=== PATIENT | male | born 1985 | race Two or more races ===

== ENCOUNTER 2025-03-16 08:32 | Emergency (ER) | payer OTHER ==
[~2025-03-16] VITALS: Ht 172.7 cm; Wt 65.8 kg
[2025-03-16] MEDS ORDERED: TETANUS & DIPHTHERIA TOX,ADULT 0.5 ML VIAL IM ONE (09:15)
[2025-03-16] MEDS ORDERED: CEFTRIAXONE SODIUM 1,000 MG VIAL IM ONE (09:15)
[2025-03-16] MEDS ORDERED: CEFTRIAXONE SODIUM 1,000 MG VIAL ONE (09:17)
[2025-03-16] MEDS ORDERED: LIDOCAINE HCL 1% 10ML VIAL ONE (09:17)
== END 2025-03-16 10:15 | disposition home or self-care (01) ==
LOC: ER 08:42
DX: S61.250A Open bite of right index finger without damage to nail, initial encounter (principal); W55.01XA Bitten by cat, initial encounter; Y93.89 Activity, other specified; Y92.89 Other specified places as the place of occurrence of the external cause; Y99.9 Unspecified external cause status